=== PATIENT | male | born 1975 | race Caucasian/White ===

== ENCOUNTER 2023-04-05 09:06 | Outpatient (CLI) | payer OTHER | END 2023-04-05 09:37 | disposition home or self-care (01) | LOC: TOM 09:06 | PROVIDERS: ATTEND Internal Medicine Hematology & Oncology | DX: J98.4 Other disorders of lung (principal); A15.0 Tuberculosis of lung; C78.00 Secondary malignant neoplasm of unspecified lung; C64.2 Malignant neoplasm of left kidney, except renal pelvis ==